=== PATIENT | male | born 1985 | race Caucasian/White ===

== ENCOUNTER → 2018-11-21 09:43 | Outpatient (CLI) | payer OTHER, SELFPAY ==
--- NOTE | 2018-11-21 09:51 | XR_ITS ---
XR toe RT min 2V CLINICAL INDICATION: ITS.REASON: RT TOE PAIN,GOUT ORDERING PHYSICIAN: Mary Haynes MD PATIENT AGE: 33 years Comparison: None FINDINGS: There is mild generalized soft tissue swelling. No bony erosive change or gouty tophi evident. The joint spaces are well-preserved. No fracture or dislocation IMPRESSION: Soft tissue swelling otherwise negative
== END ==
PROVIDERS: PCP Emergency Medicine; Visit Provider Emergency Medicine
DX: M10.9 Gout, unspecified (principal); M79.674 Pain in right toe(s)
CPT/HCPCS: 73660

== ENCOUNTER 2020-10-29 11:17 | Emergency (ER) | payer OTHER, SELFPAY ==
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
[2020-10-29 11:40] VITALS: BP 136/97; PULSE 77; RESP 20; TEMP 37.4; O2SAT 99
[2020-10-29 11:50] VITALS: BMI 32.1
--- NOTE | 2020-10-29 11:51 | CT_ITS ---
PROCEDURE: CT HEAD/BRAIN WO CON CLINICAL INDICATION: injury Head injury with headache/pain, contusion, abrasion or hematoma COMPARISON: No exams were available for comparison TECHNIQUE: Axial images obtained. All CT scans at the facility use one or more dose reduction, viz: automated exposure control, ma/kV adjustment per patient size (including targeted exams where dose is matched to indication, i.e. head), or iterative reconstruction technique. FINDINGS: No midline shift, mass effect, intracranial hemorrhage, hydrocephalus, or extra-axial fluid collection is evident. The calvarium has an unremarkable appearance. No mastoid effusion. No sinus air-fluid level. IMPRESSION: No acute intracranial finding Dictated by: Rob Botello MD 10/29/2020 13:11 Rob Botello MD in [place] 10/29/2020 13:11
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
--- NOTE | 2020-10-29 12:11 | PC.NURSE ---
Pt to rad.
[2020-10-29 12:18] VITALS: BP 145/85; PULSE 84; O2SAT 96
--- NOTE | 2020-10-29 12:53 | PC.NURSE ---
Pt refused chest and pelvis xray. states i just want my head checked out cause my told me to .
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
[2020-10-29 13:41] VITALS: BP 147/87; PULSE 71; O2SAT 98
[2020-10-29 15:01] VITALS: BP 148/97; PULSE 77; RESP 16; TEMP 36.6; O2SAT 98
== END 2020-10-29 15:02 | disposition home or self-care (01) ==
LOC: UTC 11:23 → ER 11:32
PROVIDERS: Emergency Provider Emergency Medicine; PCP Family Medicine
DX: S00.81XA Abrasion of other part of head, initial encounter (principal); V58.0XXA Driver of pick-up truck or van injured in noncollision transport accident in nontraffic accident, initial encounter; Y92.488 Other paved roadways as the place of occurrence of the external cause
CPT/HCPCS: 70450; 72125; 99281

== ENCOUNTER 2021-08-24 11:00 | Emergency (ER) | payer OTHER, SELFPAY ==
[2021-08-24 12:00] VITALS: BP 151/92; PULSE 72; RESP 18; TEMP 36.8; O2SAT 98; BMI 108.1
--- NOTE | 2021-08-24 12:15 | HMH.EDUTC ---
[facility] [place] [facility] Disposition Clinical Impression: Acute bronchitis Qualifiers: Bronchitis organism: unspecified organism Qualified Code(s): J20.9 - Acute bronchitis, unspecified Disposition: Home, Self-Care Condition on Discharge: Good Instructions: Acute Bronchitis, DI for Acute Bronchitis Additional Instructions: Drink plenty of fluids. Take tylenol or ibuprofen for pain or fever. Take the medications as directed. Follow up with your regular doctor. GO TO THE ER FOR ANY WORSENING SYMPTOMS Prescriptions: Brompheniramine/Pseudoephed/Dm [Bromfed Dm Cough Syrup] 5 ml PO Q6HP PRN #240 ml PRN Reason: Cough Transmission Status: Received by [facility] Amoxicillin/Potassium Clav [Augmentin 875-125 Tablet] 1 tab PO Q12H 10 Days #20 tab Transmission Status: Received by [facility] methylPREDNISolone [Medrol] 4 mg PO DIRECTED 6 Days #21 packet Transmission Status: Received by [facility] guaiFENesin [Mucinex 600mg tablet] 1 - 2 tab PO BIDP PRN #30 tab PRN Reason: Congestion Transmission Status: Received by [facility] Referrals: Krunal Witt MD [Primary Care Provider] - Time of Disposition: 12:32 Medical Decision Making - Medical Records Medical records reviewed: No: I reviewed the patient's medical records. - Reilly Inquiry Pt receiving controlled substance: No Vital Signs: 08/24/21 12:00 08/24/21 12:35 Temperature 98.2 F 98.2 F Temperature Source Oral Pulse Rate 72 Pulse Rate [Left] 72 Respiratory Rate 18 18 Blood Pressure 151/92 H Blood Pressure [Right Arm] 151/92 H Blood Pressure Mean [Right Arm] 111 02 Sat by Pulse Oximetry 98 - Lab Data Lab results reviewed: Yes: I reviewed the patient's lab results. Lab Results 08/24/21 12:04: Strep Scn Rapid Clinic Negative Orders (Tests/Meds): ORDERS Category Date Time Status Full Resp Panel w/COVID ([facility]) Routine Lab 08/24/21 12:05 Received Strep Screen Confirmation Stat Micro 08/24/21 12:04 Received [facility] HPI - General Stated complaint: Cough Time Seen by Provider: 08/24/21 12:15 Mode of Arrival: Ambulatory Source of Information: Patient Limitations: No Limitations Description of Symptoms (Recalled from Triage Doc. by RN): pt c/o a chest cold. pt states he has a cough that he can't get over. pt states he has been throught eight bottle of nyquil in four weeks. this has been ongoing x4 weeks. HEENT Symptoms (Recalled from RN notes): No Resp Symptoms (Recalled from RN notes): Yes (cough) Skin Symptoms (Recalled from RN notes): No MS Symptoms (Recalled from RN notes): No Functional Status (Recalled from RN notes): na - History of Present Illness Provider Complaint: He states that for the past 2 weeks he has had a cough, chest congestion, and sinus congestion. - Related Data Previous Rx's Medication Instructions Recorded predniSONE [Prednisone 20mg 20 mg PO BID #10 tab 10/03/18 Tab] methylPREDNISolone [Medrol 4mg 4 mg PO DIRECTED #21 tab 10/29/20 tab] Amoxicillin/Potassium Clav 1 tab PO Q12H 10 Days #20 tab 08/24/21 [Augmentin 875-125 Tablet] Brompheniramine/Pseudoephed/Dm 5 ml PO Q6HP PRN #240 ml 08/24/21 [Bromfed Dm Cough Syrup] guaiFENesin [Mucinex 600mg tablet] 1 - 2 tab PO BIDP PRN #30 tab 08/24/21 methylPREDNISolone [Medrol] 4 mg PO DIRECTED 6 Days #21 08/24/21 packet Allergies Allergy/AdvReac Type Severity Reaction Status Date / Time No Known Allergies Allergy Verified 10/29/20 11:39 - Worker's Comp Is this a Worker's Comp case?: No [facility] History - Hepatitis A Screen Drug use history?: No High risk sexual behaviors?: No History of sexually transmitted infection?: No Currently employed?: No Childcare worker?: No Do you have indoor plumbing?: Yes Do you have electricity?: Yes Attestation statement:: This patient has been screened for Hepatitis A risk factors. I have reviewed the patient's past medical history: Yes Medical His
[2021-08-24 12:25] LABS: UTC Strep Screen (Rapid) Negative (Negative)
[2021-08-24 12:31] LABS: Adenovirus,PCR Not Detected (NotDetected); Bordetella Pertussis Not Detected (NotDetected); Chlamydophila Pneumoniae, PCR Not Detected (NotDetected); Coronavirus 19, PCR Not Detected (NotDetected); Coronavirus 229E Not Detected (NotDetected); Coronavirus NL63 Not Detected (NotDetected); Coronavirus OC43 Not Detected (NotDetected); Coronovirus HKU1,PCR Not Detected (NotDetected); Human Metapneumovirus Not Detected (NotDetected); Influenza A, PCR Not Detected (NotDetected); Influenza AH1, 2009 Not Detected (NotDetected); Influenza AH1, PCR Not Detected (NotDetected); Influenza AH3,PCR Not Detected (NotDetected); Influenza B, PCR Not Detected (NotDetected); Mycoplasma Pneumoniae, PCR Not Detected (NotDetected); Parainfluenza 1, PCR Not Detected (NotDetected); Parainfluenza 2, PCR Not Detected (NotDetected); Parainfluenza 3, PCR Not Detected (NotDetected); Parainfluenza 4, PCR Not Detected (NotDetected); Respiratory Syncytial Virus Not Detected (NotDetected); Rhinovirus/Enterovirus Not Detected (NotDetected)
[2021-08-24 12:35] VITALS: BP 151/92; PULSE 72; RESP 18; TEMP 36.8
== END 2021-08-24 12:38 | disposition home or self-care (01) ==
PROVIDERS: Emergency Provider Nurse Practitioner Family; PCP Family Medicine
DX: J20.9 Acute bronchitis, unspecified (principal)
CPT/HCPCS: 87581; 87632; 87798; 87880; 99203; C9803; G0463; U0003; U0005

== ENCOUNTER → 2021-10-21 11:53 | Outpatient (CLI) | payer BC, SELFPAY ==
[2021-10-21 12:53] LABS: Adenovirus,PCR Not Detected (NotDetected); Bordetella Pertussis Not Detected (NotDetected); Chlamydophila Pneumoniae, PCR Not Detected (NotDetected); Coronavirus 229E Not Detected (NotDetected); Coronavirus NL63 Not Detected (NotDetected); Coronavirus OC43 Not Detected (NotDetected); Coronovirus HKU1,PCR Not Detected (NotDetected); Human Metapneumovirus Not Detected (NotDetected); Influenza A, PCR Not Detected (NotDetected); Influenza AH1, 2009 Not Detected (NotDetected); Influenza AH1, PCR Not Detected (NotDetected); Influenza AH3,PCR Not Detected (NotDetected); Influenza B, PCR Not Detected (NotDetected); Mycoplasma Pneumoniae, PCR Not Detected (NotDetected); Parainfluenza 1, PCR Not Detected (NotDetected); Parainfluenza 2, PCR Not Detected (NotDetected); Parainfluenza 3, PCR Not Detected (NotDetected); Parainfluenza 4, PCR Not Detected (NotDetected); Respiratory Syncytial Virus Not Detected (NotDetected); Rhinovirus/Enterovirus Not Detected (NotDetected)
[2021-10-21 13:03] LABS: Basophils # 0.1 K/mm3 (0-0.2); Basophils % 3.3 % (0.1-2.0); Eosinophils % 0.3 % (0.1-12.0); Hematocrit 47.8 % (42.0-52.0); Hemoglobin 16.1 g/dL (14.1-18.0); Lymphocytes # 1.4 K/mm3 (0.7-4.5); Lymphocytes % 34.3 % (10-50); Mean Corpuscular HGB Conc 33.7 g/dL (31.8-35.4); Mean Platelet Volume 8.5 fl (7.4-10.4); Monocytes # 0.4 K/mm3 (0.1-1.0); Neutrophils # 2.3 K/mm3 (1.8-7.8); Neutrophils % 55.3 % (37.0-80.0); Platelet Count 229 K/mm3 (142-424); Red Blood Count 5.36 M/mm3 (4.60-6.20); Red Cell Distribution Width 13.4 % (11.5-17.5); White Blood Count 4.1 K/mm3 (4.8-10.8)
[2021-10-21 18:53] LABS: Coronavirus 19, PCR Detected (NotDetected)
== END ==
PROVIDERS: PCP Family Medicine; Visit Provider Physician Assistant
DX: U07.1 COVID-19 (principal)
CPT/HCPCS: 36415; 85025; 87581; 87632; 87798; C9803; U0003; U0005

== ENCOUNTER → 2021-10-29 10:57 | Outpatient (CLI) | payer BC, SELFPAY ==
--- NOTE | 2021-10-29 11:02 | XR_ITS ---
FINAL REPORT CLINICAL HISTORY: COVID OUTPATIENT, cough FINDINGS: SINGLE VIEW CHEST. The heart is normal in size. The mediastinum is unremarkable. The lungs are clear. There is no pneumothorax. IMPRESSION: No active disease. Reviewed, Interpreted and Dictated by Buck Shaikh III, MD Transcribed by Apolonia Hawkins Authenticated by Buck Shaikh III, MD on 10/29/2021 12:08:20 PM [facility]
[2021-10-29 12:13] LABS: Basophils # 0.1 K/mm3 (0-0.2); Basophils % 2.9 % (0.1-2.0); Eosinophils # 0.2 K/mm3 (0.0-0.4); Eosinophils % 3.7 % (0.1-12.0); Hematocrit 48.5 % (42.0-52.0); Hemoglobin 16.3 g/dL (14.1-18.0); Lymphocytes # 1.7 K/mm3 (0.7-4.5); Lymphocytes % 39.6 % (10-50); Mean Corpuscular HGB Conc 33.7 g/dL (31.8-35.4); Mean Corpuscular Hemoglobin 29.6 pg (27.0-31.2); Mean Corpuscular Volume 87.8 fl (80-94); Mean Platelet Volume 8.4 fl (7.4-10.4); Monocytes # 0.3 K/mm3 (0.1-1.0); Monocytes % 6.7 % (1.7-9.3); Neutrophils # 2.1 K/mm3 (1.8-7.8); Neutrophils % 47.1 % (37.0-80.0); Platelet Count 205 K/mm3 (142-424); Red Blood Count 5.52 M/mm3 (4.60-6.20); Red Cell Distribution Width 13.6 % (11.5-17.5); White Blood Count 4.4 K/mm3 (4.8-10.8)
[2021-10-29 13:11] LABS: Chloride 105 mmol/L (98-107); Sodium 140 mmol/L (136-145)
[2021-10-29 13:13] LABS: Alanine Aminotransferase 68 U/L (12-78); Aspartate Amino Transferase 62 U/L (17-59); Blood Urea Nitrogen 12 mg/dl (9-20); Estimated Glomerular Filt Rate 97 ml/min (>60); GFR (African American) 117 ML/MIN (>60)
[2021-10-29 13:14] LABS: Albumin Level 4.5 g/dl (3.5-5.0); Albumin/Globulin Ratio 1.8 (1.1-1.8); Alkaline Phosphatase 72 U/L (38-126); Bilirubin,Total 0.6 mg/dl (0.2-1.3); Calcium 9.1 mg/dl (8.4-10.2); Carbon Dioxide 26 mmol/L (22.0-30.0); Globulin 2.5 g/dL (1.3-3.2); Glucose 98 mg/dl (74-100)
== END ==
PROVIDERS: PCP Family Medicine; Visit Provider Physician Assistant
DX: Z86.16 Personal history of COVID-19 (principal)
CPT/HCPCS: 36415; 71045; 80053; 85025

== ENCOUNTER 2022-10-06 16:02 | Emergency (ER) | payer OTHER, SELFPAY ==
[2022-10-06 16:20] VITALS: BP 152/104; PULSE 92; RESP 20; TEMP 36.8; O2SAT 98; BMI 33.5
--- NOTE | 2022-10-06 16:35 | EXP.UTC ---
Discharge Plan Disposition Patient Disposition: Home, Self-Care Condition: Good Prescriptions Prescriptions: New azithromycin [Zithromax Z-David] 250 mg tablet See Rx Instructions .ROUTE .COMPLEX 5 Days Qty: 6 0RF Rx Instructions: For 250 mg dose pack: take 500 mg today (day 1), then 250 mg for 4 days (days 2-5) benzonatate 100 mg capsule 100 mg PO TID PRN (Reason: cough) Qty: 30 0RF methylprednisolone [Medrol (David)] 4 mg tablets,dose pack See Rx Instructions .Route .COMPLEX 6 Days Qty: 21 0RF Rx Instructions: taper pack; Referrals Follow up/Referrals: Krunal Witt MD [Primary Care Provider] - See instructions Activity Restrictions/Add. Instructions Additional Instructions/Restrictions: Start antibiotic today. Be sure to complete entire prescription even if feeling better Monitor temp. Tylenol every 4 hours as needed and / or ibuprofen every 6 hours as needed ( As long as your primary care physician has told you that it ok to take both. For fever/aches/pains ER if no less than 101 despite Tylenol or Motrin Humidifier/vaporizer or hot steamy shower *Tessalon Perles will not cause drowsiness but use at bedtime to help stop cough so that you may get some rest. *Start Medrol Dose Pack tomorrow Helps with inflammation therefore, cough and wheezing. Follow directions on the package. Reviewed side effects. Patient reports taking them before. Follow up IMMEDIATELY for new or worsening of symptoms OR no noticeable improvement over the next 48-72 hours. 911 immediately for any life threatening symptoms such as chest pain or difficulty breathing Clinical Impressions Clinical Impression: Sinusitis, Bronchitis Instructions Patient Instructions: Sinusitis, Acute Bronchitis, DI for Sinusitis Discharge ED Provider: Madelyn Trotter [facility] [place] HPI General Stated complaint: SORE THROAT,COUGH Mode of Arrival: Ambulatory Source of Information: Patient Limitations: No Limitations Time Seen by Provider: 10/06/22 16:35 Description of Symptoms (Recalled from Triage Doc. by RN): PATIENT C/O COUGH, SORE THROAT, CONGESTION, AND HEADACHE/DIZZINESS WHEN COUGHING X 2 WEEKS HEENT Symptoms (Recalled from RN notes): Yes Resp Symptoms (Recalled from RN notes): Yes Skin Symptoms (Recalled from RN notes): No MS Symptoms (Recalled from RN notes): No Functional Status (Recalled from RN notes): WNL History of Present Illness Provider Complaint: Patient states that he hasnt been feeling well for a couple of weeks States that he has been having sore throat, cough, sinus congestion, headache/dizziness at times after coughing episode and hoarseness States that today he was still feeling bad and his wanted him to come in and get checked 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 and wanted to get seen before it turned into Pneumonia like last time States that he has been taking several OTC decongestant medications but not helped much Related Data Previous Rx's Medication Instructions Recorded azithromycin 250 mg tablet See Rx Instructions PO .COMPLEX 5 10/06/22 (Zithromax Z-David) days #6 tabs benzonatate 100 mg capsule 100 mg PO TID PRN cough #30 caps 10/06/22 methylprednisolone 4 mg tablets in See Rx Instructions .Route 10/06/22 a dose pack (Medrol (David)) .COMPLEX 6 days #21 tabs Allergies Allergy/AdvReac Type Severity Reaction Status Date / Time No Known Allergies Allergy Verified 10/29/20 11:39 Worker's Comp Is this a Worker's Comp case?: No [facility] Disclaimer: The information contained in this section may have been updated after the patient was seen, as this information can be updated by other users. Medical History (Updated 10/06/22 @ 16:50 by Madelyn Trotter APRN) No significant past medical history Social History (Updated 10/06/22 @ 16:34 by Hannah Hwang RN) Smoking Status: Current every day smoker tobacco type: smokeless tobacco
[2022-10-06 16:42] LABS: UTC Strep Screen (Rapid) Negative (Negative)
[2022-10-06 16:57] VITALS: BP 152/104; PULSE 92; RESP 20; TEMP 36.8; O2SAT 98
== END 2022-10-06 17:09 | disposition home or self-care (01) ==
PROVIDERS: Emergency Provider Nurse Practitioner; PCP Family Medicine
DX: J40 Bronchitis, not specified as acute or chronic (principal); J32.9 Chronic sinusitis, unspecified
CPT/HCPCS: 87880; 96372; 99212; G0463; J0696

== ENCOUNTER 2022-11-05 11:59 | Emergency (ER) | payer OTHER, SELFPAY ==
--- NOTE | 2022-11-05 12:50 | EXP.UTC ---
Discharge Plan Disposition Patient Disposition: Home, Self-Care Condition: Good Prescriptions Prescriptions: New benzonatate [benzonatate] 100 mg capsule 100 mg PO TIDP PRN (Reason: Cough) Qty: 30 0RF methylprednisolone 4 mg Tablets,Dose Pack 4 mg PO DIRECTED Qty: 21 0RF amoxicillin-pot clavulanate 875-125 mg Tablet 1 tab PO Q12H Qty: 20 0RF guaifenesin [Mucinex] 600 mg tablet extended release 12hr 600 - 1,200 mg PO BIDP PRN (Reason: Congestion) Qty: 30 0RF Referrals Follow up/Referrals: Krunal Witt MD [Primary Care Provider] - See instructions Activity Restrictions/Add. Instructions Additional Instructions/Restrictions: Drink plenty of fluids. Take tylenol or ibuprofen for pain or fever. Take the medications as directed. Follow up with your regular doctor. GO TO THE ER FOR ANY WORSENING SYMPTOMS Clinical Impressions Clinical Impression: Acute bronchitis, Sinusitis Instructions Patient Instructions: DI for Sinusitis, DI for Acute Bronchitis Discharge ED Provider: Cole Lima [facility] General Stated complaint: cough,headache Time Seen by Provider: 11/05/22 12:50 History of Present Illness Provider Complaint: He states that for the past 5 days he has had sinus congestion, chest congestion and a cough. Related Data Previous Rx's Medication Instructions Recorded amoxicillin 875 mg-potassium 1 tab PO Q12H #20 tabs 11/05/22 clavulanate 125 mg tablet benzonatate 100 mg capsule 100 mg PO TIDP PRN Cough #30 caps 11/05/22 guaifenesin 600 mg tablet, 600 - 1,200 mg PO BIDP PRN 11/05/22 extended release 12 hr (Mucinex) Congestion #30 tabs methylprednisolone 4 mg tablets in 4 mg PO DIRECTED #21 tabs 11/05/22 a dose pack Allergies Allergy/AdvReac Type Severity Reaction Status Date / Time No Known Allergies Allergy Verified 11/05/22 13:[address] [facility] Disclaimer: The information contained in this section may have been updated after the patient was seen, as this information can be updated by other users. Medical History No significant past medical history Social History Smoking Status: Current every day smoker tobacco type: smokeless tobacco second hand exposure: Yes alcohol intake: never current occupational status: employed Travel in the last 8 weeks: None ROS Obtained: Yes All systems reviewed & no additional complaints except as documented Constitutional Constitutional: Reports poor appetite Eyes Eyes: Reports system reviewed and no additional complaints, except as documented ENT Ears, Nose, Mouth, and Throat: Reports as per HPI Cardiovascular Cardiovascular: Reports system reviewed and no additional complaints, except as documented and Denies chest pain Respiratory Respiratory: Denies shortness of breath, Reports chest congestion, Reports cough, Denies stridor and Denies wheezing Gastrointestinal Gastrointestingal: Reports system reviewed and no additional complaints, except as documented; Denies abdominal pain, diarrhea or vomiting Musculoskeletal Musculoskeletal: Reports system reviewed and no additional complaints, except as documented and Denies arthralgias Integumentary/Breasts Skin/Breast: Reports system reviewed and no additional complaints, except as documented and Denies rash Neurologic Neurologic: Denies paresthesias Allergic/Immunologic Allergic/Immunologic: Denies wheezing Physical Exam General General appearance: alert and in no apparent distress Eye Eye exam: Present normal appearance, PERRL and EOMI ENT ENT exam: Present mucous membranes moist and normal external ear exam Expanded ENT Exam External ear exam: Present normal external inspection TM/Canal exam: Bilateral TM: erythema and bulging Nose exam: Absent sinus tenderness Nasal speculum exam: Bilateral: normal Mouth exam: Present normal external inspection; Abs
[2022-11-05 13:00] VITALS: BP 145/93; PULSE 87; RESP 20; TEMP 36.7; O2SAT 98; BMI 32.8
[2022-11-05 13:31] VITALS: BP 0/0; PULSE 87; RESP 20; TEMP 36.7; O2SAT 98
== END 2022-11-05 13:30 | disposition home or self-care (01) ==
PROVIDERS: Emergency Provider Nurse Practitioner Family; PCP Family Medicine
DX: J20.9 Acute bronchitis, unspecified (principal); J32.9 Chronic sinusitis, unspecified
CPT/HCPCS: 99212; 99214; G0463

== ENCOUNTER 2023-04-30 08:16 | Emergency (ER) | payer OTHER, SELFPAY ==
[2023-04-30 08:25] VITALS: BP 146/86; PULSE 81; RESP 18; TEMP 36.8; O2SAT 98; BMI 28.0
--- NOTE | 2023-04-30 08:48 | EXP.UTC ---
Discharge Plan Disposition Patient Disposition: Home, Self-Care Condition: Good Prescriptions Prescriptions: New colchicine [Colcrys] 0.6 mg tablet 0.6 mg PO DIRECTED Qty: 6 0RF Rx Instructions: Take (2) 0.6mg tablets now wait one hour then take (1) 0.6mg tablet for gout flare, may repeat regimen in 3 days if still having symptoms Referrals Follow up/Referrals: Krunal Witt MD [Primary Care Provider] - See instructions Activity Restrictions/Add. 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 General Stated complaint: Possible gout Mode of Arrival: Ambulatory Source of Information: Patient Limitations: No Limitations Time Seen by Provider: 04/30/23 08:49 Description of Symptoms (Recalled from Triage Doc. by RN): PATIENT C/O GOUT TO RIGHT FOOT HEENT Symptoms (Recalled from RN notes): No Resp Symptoms (Recalled from RN notes): No Skin Symptoms (Recalled from RN notes): No MS Symptoms (Recalled from RN notes): Yes Functional Status (Recalled from RN notes): WNL History of Present Illness Provider Complaint: Patient states that he use to get gout frequently and just got back from Vacation and having redness swelling and pain in his right great toe where he use to get gout before States that he knows it is gout feels like it has before when he has had and did not want labs Related Data Previous Rx's Medication Instructions Recorded colchicine 0.6 mg tablet (Colcrys) 0.6 mg PO DIRECTED #6 tabs 04/30/23 Allergies Allergy/AdvReac Type Severity Reaction Status Date / Time No Known Allergies Allergy Verified 11/05/22 13:18 Worker's Comp Is this a Worker's Comp case?: No [facility] Disclaimer: The information contained in this section may have been updated after the patient was seen, as this information can be updated by other users. Medical History No significant past medical history Social History Smoking Status: Current every day smoker tobacco type: smokeless tobacco second hand exposure: Yes alcohol intake: never current occupational status: employed Travel in the last 8 weeks: None ROS Obtained: Yes All systems reviewed & no additional complaints except as documented and Yes Systems reviewed as appropriate & no additional complaints except as documented Constitutional Constitutional: Reports system reviewed and no additional complaints, except as documented, Reports as per HPI and Denies fever(s) ENT Ears, Nose, Mouth, and Throat: Reports system reviewed and no additional complaints, except as documented and Reports as per HPI Cardiovascular Cardiovascular: Reports system reviewed and no additional complaints, except as documented and Reports as per HPI Respiratory Respiratory: Reports system reviewed and no additional complaints, except as documented and Reports as per HPI Gastrointestinal Gastrointestingal: Reports system reviewed and no additional complaints, except as documented and as per HPI Musculoskeletal Musculoskeletal: Reports system reviewed and no additional complaints, except as documented and Reports as per HPI Integumentary/Breasts Skin/Breast: Reports system reviewed and no additional complaints, except as documented a
[2023-04-30 08:54] VITALS: BP 146/86; PULSE 81; RESP 18; TEMP 36.8; O2SAT 98
== END 2023-04-30 09:02 | disposition home or self-care (01) ==
PROVIDERS: Emergency Provider Nurse Practitioner; PCP Family Medicine
DX: M10.071 Idiopathic gout, right ankle and foot (principal); F17.200 Nicotine dependence, unspecified, uncomplicated
CPT/HCPCS: 96372; 99212; 99214; G0463

== ENCOUNTER 2024-01-29 08:00 | Outpatient (RCR) | payer OTHER, SELFPAY | END 2024-01-29 09:10 | disposition home or self-care (01) | LOC: PT 08:00 | PROVIDERS: PCP Family Medicine; Visit Provider Podiatrist Foot & Ankle Surgery | DX: M25.571 Pain in right ankle and joints of right foot (principal); S92.141D Displaced dome fracture of right talus, subsequent encounter for fracture with routine healing | CPT/HCPCS: 97014; 97016; 97110; 97112; 97140; 97163; 97164; 97530; 97760; G0283 ==